=== PATIENT | female | born 1965 | race American Indian/Alaskan Native ===

== ENCOUNTER 2018-12-30 08:14 | Outpatient (CLI) | payer BC ==
--- NOTE | 2018-12-30 09:44 | Cat Scan Report ---
CT PELVIS WITHOUT CONTRAST HISTORY: Chronic pelvic pain, hysterectomy in 2016, vaginal discharge and bleeding. COMPARISON: None. TECHNIQUE: CT images of the abdomen were obtained without intravenous contrast. All CT scans at this location are performed using CT dose reduction for ALARA by means of automated exposure control. FINDINGS: Hysterectomy changes are evident. I believe I see the ovaries which are unremarkable. The vaginal cuf f is within normal limits. The bladder is empty and grossly normal. Normal distal ureters. Visualized bowel loops in the pelvis including the appendix are unremarkable. No evidence for adenopathy, fluid collection or inflammatory changes. The bony pelvis is within normal limits. IMPRESSION: Hysterectomy. Otherwise, unremarkable noncontrast CT pelvis. Signer Name: Jericho Parmar Jr, MD Signed: 12/30/2018 9:40 AM Workstation Name: [id number]
--- NOTE | 2018-12-30 13:06 | Mammography Report ---
DIGITAL SCREENING MAMMOGRAM WITH CAD INDICATION: Routine screening mammography. TECHNIQUE: Digital bilateral 2D mammography was obtained in the craniocaudal and mediolateral obliq ue projections. This examination was interpreted with the benefit of Computer-Aided Detection analysi s. COMPARISON: None available. FINDINGS: Breast Density: The breasts are almost entirely fatty. There is no evidence of dominant mass, suspicious calcifications or architectural distortion in eith er breast. IMPRESSION: BI-RADS Category 1: Negative. No mammographic evidence of malignancy. Recommend routine screening m ammography in one year. A "normal" or negative report should not discourage follow up or biopsy of a clinically significant f inding. A written summary of these findings will be mailed to the patient. The patient will be entered into a mammography reporting system which will generate a reminder letter for the patient's next appointmen t at the appropriate interval. The [employer] recommends yearly mammograms starting at age 40 and continuing as l zbigniew as a woman is in good health. Breast MRI is recommended for women with an approximate 20-25% or greater lifetime risk of breast cancer, including women with a strong family history of breast or ova gayle cancer or who have been treated for Hodgkin's disease. Signer Name: Stephane Baltazar MD Signed: 12/30/2018 1:02 PM Workstation Name: [id number]
== END 2018-12-30 08:15 | disposition home or self-care (01) ==
LOC: CT 08:14
PROVIDERS: ATTEND Obstetrics & Gynecology
DX: Z12.31 Encounter for screening mammogram for malignant neoplasm of breast (principal); R10.2 Pelvic and perineal pain; Z90.710 Acquired absence of both cervix and uterus
CPT/HCPCS: 72192; 77067